=== PATIENT | male | born 1950 | race Caucasian/White ===

== ENCOUNTER 2017-02-24 11:50 | Inpatient (IN) | payer MEDICAID ==
[~2017-02-24] VITALS: Ht 175.3 cm; Wt 99.2 kg
[2017-02-24] MEDS ORDERED: ASPIRIN 81 MG TAB PO STA (12:23)
[2017-02-24] MEDS ORDERED: DICLOFENAC SODIUM 37.5 MG/ML VIAL IV STA (12:23)
[2017-02-24 12:45] LABS: ADD SCAN DIFF NO
[2017-02-24 12:47] LABS: BASOPHIL # 0.1 10^3/ul (0.0-0.1); BASOPHILS % 0.7 % (0.0-2.0); EOSINOPHILS # 0.2 10^3/ul (0.0-0.5); EOSINOPHILS % 2.1 % (0.0-7.0); HEMATOCRIT 42.5 % (42.0-52.0); HEMOGLOBIN 14.6 g/dl (14.0-18.0); LYMPHOCYTES # 1.8 10^3/ul (0.8-2.9); LYMPHOCYTES % 24.7 % (15.0-51.0); MEAN CORPUSCULAR HEMOGLOBIN 31.6 pg (29.0-33.0); MEAN CORPUSCULAR HGB CONC 34.4 g/dl (32.0-37.0); MEAN PLATELET VOLUME 12.8 fl (7.4-10.4); MONOCYTE # 0.6 10^3/ul (0.3-0.9); MONOCYTES % 8.8 % (0.0-11.0); NEUTROPHIL # 4.6 10^3/ul (1.6-7.5); NEUTROPHILS % 63.4 % (39.0-77.0); PLATELET COUNT 188 10^3/UL (140-415); RED BLOOD COUNT 4.62 10^6/ul (4.70-6.10); RED CELL DISTRIBUTION WIDTH 12.1 % (11.5-14.5); WHITE BLOOD COUNT 7.3 10^3/ul (4.8-10.8)
[2017-02-24 13:03] LABS: ALANINE AMINOTRANSFERASE 25 IU/L (13-69); ALBUMIN 3.7 g/dl (3.3-4.9); ALBUMIN/GLOBULIN RATIO 1.15; ALKALINE PHOSPHATASE 72 IU/L (42-121); ANION GAP 9 (8-16); ASPARTATE AMINO TRANSFERASE 21 IU/L (15-46); BILIRUBIN,INDIRECT 2.1 mg/dl (0-1.1); BILIRUBIN,TOTAL 2.1 mg/dl (0.2-1.3); BLOOD UREA NITROGEN 11 mg/dl (7-20); CALCIUM 8.6 mg/dl (8.4-10.2); CARBON DIOXIDE 25 mmol/L (21-31); CHLORIDE 108 mmol/L (97-110); CREATININE 0.78 mg/dl (0.61-1.24); GLUCOSE 99 mg/dl (70-220); POTASSIUM 4.1 mmol/L (3.5-5.1); SODIUM 138 mmol/L (135-144); TOTAL PROTEIN 6.9 g/dl (6.1-8.1)
[2017-02-24 13:09] LABS: B-TYPE NATRIURETIC PEPTIDE 715 PG/ML (0-125)
--- NOTE | 2017-02-24 13:28 | RADRPT ---
PROCEDURE: XR Chest 1 View. CLINICAL INDICATION: Chest pain , shortness of breath TECHNIQUE: AP view of the chest was obtained. COMPARISON: None. FINDINGS: The cardiomediastinal silhouette is within normal limits. Subsegmental atelectasis is noted at the l eft lung base. No consolidations are identified. No pneumothorax is seen. Osseous structures are i ntact. IMPRESSION: Subsegmental atelectasis at the left lung base. RPTAT: AA .Mike Bianchi MD, Date Time Electronically viewed and signed by .Mike Bianchi MD, on 02/24/2017 13:27 .P/
[2017-02-24 13:42] LABS: TROPONIN-I < 0.012 ng/ml (0.00-0.12)
[2017-02-24] MEDS ORDERED: HYDR-906 PO (14:31)
[2017-02-24] MEDS ORDERED: IBUP800T25 PO (14:31)
--- NOTE | 2017-02-24 14:35 | ERD ---
ER Documentation Chief Complaint Date/Time DATE: 02/24/17 TIME: 14:31 Chief Complaint chest pain started today HPI 66-year-old male who is complaining of left-sided chest pain. Patient states the pain is sharp and worse with movement. He does not have any history of trauma or repetitive use injury. Pain is not radiating. He has no shortness of breath and diaphoresis no palpitations. The patient complains with 3 month history of shortness of breath while he is asleep. He says when he sleeps she wakes up gasping for air on multiple occasions throughout the night. He has no orthopnea no dyspnea on exertion. Does have excessive fatigue during the day and can fall asleep easily watching TV. ROS All systems reviewed and are negative except as per history of present illness. Medications Home Meds Active Scripts Hydrocodone/Acetaminophen (Phillips 5-325 Tablet) 1 Each Tablet, 1 TAB PO Q6H Y for PAIN, #7 TAB Prov:ANTOLIN CHRISTIANSENSTADRIANS Gera. DO 02/24/17 Ibuprofen* (Motrin*) 800 Mg Tab, 800 MG PO Q6H Y for PAIN AND OR ELEVATED TEMP, #30 TAB Prov:ADANOSANTOLINSTOLOS A. DO 02/24/17 Allergies Allergies: Coded Allergies: No Known Allergy (Unverified , 02/24/17) PMhx/Soc Medical and Surgical Hx: pt denies Medical Hx, pt denies Surgical Hx Hx Alcohol Use: No Hx Substance Use: No Hx Tobacco Use: No Smoking Status: Unknown if ever smoked FmHx Family History: No coronary disease Physical Exam Vitals Vital Signs Date Time Temp Pulse Resp B/P Pulse Ox O2 Delivery O2 Flow Rate FiO2 02/24/17 13:33 66 18 144/98 98 Room Air 02/24/17 12:07 98.2 70 18 154/90 98 Physical Exam Const: Well-developed, well-nourished Head: Atraumatic, normocephalic Eyes: Normal Conjunctiva, PERRLA, EOMI, normal sclera, no nystagmus ENT: Normal External Ears, Nose and Mouth, moist mucus membranes. Neck: Full range of motion. No meningismus, no lymphadenopathy. Resp: Clear to auscultation bilaterally, no wheezing, rhonchi, rales Cardio: Regular rate and rhythm, no murmurs, S1 S2 present, he has severe tenderness to the left anterior chest wall at the costosternal margin. The pain is sharp and 100% reproducible. It is also reproducible with range of motion of the left upper extremity and twisting of the trunk Abd: Soft, non tender x 4, non distended. Normal bowel sounds, no guarding or rebound, no pulsitile abdominal masses or bruits Skin: No petechiae or rashes, no ecchymosis , no maculopapular rash Back: No midline or flank tenderness Ext: No cyanosis, or edema, FROM x 4, normal inspection, neurovascularly intact x 4 Neur: Awake and alert, STR 5/5 x 4, sensation intact x 4, no focal findings, cerebellum intact Psych: Normal Mood and Affect Result Diagram: 02/24/17 1230 02/24/17 1230 Results 24 hrs Laboratory Tests Test 02/24/17 12:30 White Blood Count 7.310^3/ul Red Blood Count 4.6210^6/ul Hemoglobin 14.6g/dl Hematocrit 42.5% Mean Corpuscular Volume 92.0fl Mean Corpuscular Hemoglobin 31.6pg Mean Corpuscular Hemoglobin Concent 34.4g/dl Red Cell Distribution Width 12.1% Platelet Count 33419^3/UL Mean Platelet Volume 12.8fl Neutrophils % 63.4% Lymphocytes % 24.7% Monocytes % 8.8% Eosinophils % 2.1% Basophils % 0.7% Nucleated Red Blood Cells % 0.0/100WBC Neutrophils # 4.610^3/ul Lymphocytes # 1.810^3/ul Monocytes # 0.610^3/ul Eosinophils # 0.210^3/ul Basophils # 0.110^3/ul Nucleated Red Blood Cells # 0.010^3/ul Sodium Level 138mmol/L Potassium Level 4.1mmol/L Chloride Level 108mmol/L Carbon Dioxide Level 25mmol/L Anion Gap 9 Blood Urea Nitrogen 11mg/dl Creatinine 0.78mg/dl Glucose Level 99mg/dl Calcium Level 8.6mg/dl Total Bilirubin 2.1mg/dl Direct Bilirubin 0.00mg/dl Indirect Bilirubin 2.1mg/dl Aspartate Amino Transf (AST/SGOT) 21IU/L Alanine Aminotransferase (ALT/SGPT) 25IU/L Alkaline Phosphatase 72IU/L Troponin I < 0.012ng/ml B-Type Natriuretic Peptide 715PG/ML Total Protein 6.9g/dl Albumin 3.7g/dl Globulin 3.20g/dl Albumin/Globulin Ratio 1.15 Current Medications Medications (Trade) Dose Ordered Sig/Abdiaziz Route PRN Reason Start Time Stop Time Status Last Admin Dose Admin Aspirin (Aspirin) 162 mg ONCE STAT PO 02/24/17 12:23 02/24/17 12:26 DC 02/24/17 13:15 Diclofenac Sodium (Dyloject) 37.5 mg ONCE STAT IV 02/24/17 12:23 02/24/17 12:26 DC 02/24/17 13:15 Procedures/MDM PROCEDURE: XR Chest 1 View. CLINICAL INDICATION: Chest pain , shortness of breath TECHNIQUE: AP view of the chest was obtained. COMPARISON: None. FINDINGS: The cardiomediastinal silhouette is within normal limits. Subsegmental atelectasis is noted at the left lung base. No consolidations are identified. No pneumothorax is seen. Osseous structures are intact. IMPRESSION: Subsegmental atelectasis at the left lung base. RPTAT: AA .Mike Bianchi MD, MD Date Time Electronically viewed and signed by .Mike Bianchi MD, MD on 02/24/2017 13:27 .P/ CC: OSCAR CHRISTIANSEN DO EKG: Rate/Rhythm: Rate controlled atrial fibrillation QRS, ST, QT: NORMAL FL, QRS, QT] Impression: Atrial fibrillation EK Rate/Rhythm: Rate controlled atrial fibrillation QRS, ST, QT: NORMAL FL, QRS, QT] Impression: Atrial fibrillation The patient's chest pain is clearly musculoskeletal any show signs clinically of sleep apnea needs a sleep study. The patient does have new onset atrial fibrillation but not rapid ventricular response. He will need to be admitted for workup and echocardiogram and hopefully conversion Departure Diagnosis: Primary Impression: Atrial fibrillation Atrial fibrillation type: unspecified Qualified Code: I48.91 - Atrial fibrillation, unspecified type Additional Impressions: Costochondritis Sleep apnea Sleep apnea type: unspecified type Qualified Code: G47.30 - Sleep apnea, unspecified type Condition: Stable Patient Instructions: Surgical Treatment for Snoring and Sleep Apnea OSCAR CHRISTIANSEN DO Feb 24, 2017 14:35
[2017-02-24] MEDS ORDERED: ONDANSETRON 4 MG INJ IV PRN ×2 (16:00→17:30)
[2017-02-24] MEDS ORDERED: ACETAMINOPHEN 325 MG TAB PO PRN ×2 (16:00→17:30)
[2017-02-24] MEDS ORDERED: NITROGLYCERIN (SL) 0.4 MG TAB SL PRN (17:30)
[2017-02-24] MEDS ORDERED: DOCUSATE SODIUM 100 MG CAP PO PRN (17:30)
[2017-02-24] MEDS ORDERED: HYDROCODONE/APAP (5/325) TAB PO PRN (17:30)
[2017-02-24] MEDS ORDERED: NACL 0.9% 3 ML SYG IV SCH (17:30)
[2017-02-24] MEDS ORDERED: BISACODYL (EC) 5 MG TAB PO PRN (17:30)
[2017-02-24] MEDS ORDERED: LORAZEPAM 0.5 MG TAB PO PRN (17:30)
--- NOTE | 2017-02-24 18:20 | RADRPT ---
PROCEDURE: Right upper quadrant ultrasound CLINICAL INDICATION: Abdominal pain TECHNIQUE: Multiple real-time images were acquired of the patient's abdomen and right retroperiton eum utilizing a high resolution transducer. COMPARISON: None FINDINGS: The liver is normal in echogenicity and measures 19.0 cm. No focal hepatic masses are seen. The ga llbladder is physiologically distended. There is no evidence of gallstones, gallbladder wall thicke frank, or pericholecystic fluid. The intra and extrahepatic bile ducts are normal in caliber. The c ommon bile duct measures 3.5 mm. Pancreas is suboptimally seen Survey views of the right kidney demonstrate no evidence of hydronephrosis or renal calculi. The ri ght kidney measures 10.3 cm. IMPRESSION: 1. No evidence of cholelithiasis or acute cholecystitis. 2. Borderline hepatomegaly. 3. Pancreas suboptimally seen RPTAT: HH .Chilango Okeefe MD, Date Time Electronically viewed and signed by .Chilango Okeefe MD, MD on 02/24/2017 18:20 .W/
[2017-02-24 18:30] LABS: CREATINE KINASE 70 IU/L (23-200)
[2017-02-24 18:42] LABS: CK-MB 1.37 ng/ml (0.0-2.4)
[2017-02-24 18:43] LABS: TROPONIN-I < 0.012 ng/ml (0.00-0.12)
--- NOTE | 2017-02-24 18:43 | HP ---
DATE OF ADMISSION: 02/24/2017 FINE PATCHER: Dr. Ronn Redding. CHIEF COMPLAINT: Shortness of breath. HISTORY OF PRESENT ILLNESS: This is a 66-year-old gentleman with past medical history of arthritis who has been complaining of having shortness of breath and paroxysmal nocturnal dyspnea for the past 2 to 3 months with worsening of his shortness of breath with activity. Patient presents today to [facility] where a chest x-ray was obtained which shows subsegmental atelectasis at the left lung base, no evidence of CHF. His troponin was found to be negative. His EKG demonstrat ed rate controlled atrial fibrillation, normal DE, QRS, patient was treated with aspirin and diclofe nac over the course in the emergency room. At this time, the patient is lying in bed comfortably wi thout any distress. He is awake, alert, oriented. He is able to answer my questions properly. PAST MEDICAL AND SURGICAL HISTORY: 1. Arthritis. 2. Moderate obesity. MEDICATIONS: 1. [place]. 2. Ibuprofen. ALLERGIES: NO KNOWN DRUG ALLERGIES. FAMILY HISTORY: Noncontributory. SOCIAL HISTORY: He used to smoke but he does not smoke, no alcohol, no illicit drugs. REVIEW OF SYSTEMS: Denies any fever, chills, weight gain, weight loss, anorexia. No chest pain, pa lpitations, edema, orthopnea. No change in visual acuity, diplopia, photophobia. No abdominal pain , nausea, vomiting, diarrhea. No headache, dizziness, lightheadedness. No neck pain, no restricted range of motion. No recent travel history. No sick contact. PHYSICAL EXAMINATION VITAL SIGNS: Temperature 98.2, pulse 71, respirations 17, blood pressure 142/98, oxygen saturation 100% on room air. GENERAL APPEARANCE: Patient is lying in bed comfortably without any acute distress. He is awake, a lert, oriented. He is able to answer my questions properly. EYES AND ENT: Conjunctivae and lids are normal. Pupils are normal. Extraocular normal. Hearing g rossly normal. NECK: Supple. Trachea is midline. No lymphadenopathy. RESPIRATORY: Effort is normal. Clear to auscultation bilaterally. CARDIOVASCULAR: Normal S1, S2. Regular rhythm and rate. No murmur, no bruits, no edema. Peripher al pulses and radial pulses palpable. Cap refill is normal. CHEST: Normal expansion of thorax during inspiration. GASTROINTESTINAL: Abdomen is soft, nontender, not distended. Bowel sounds present. No guarding, n o rebound. GENITOURINARY: Deferred. MUSCULOSKELETAL: Upper and lower extremities within normal limits. Full range of motion, strength 5/5 in both upper and lower extremities. NEUROLOGIC: Cranial nerves II through XII are grossly intact. PSYCHIATRIC: Normal judgment and insight. Alert and oriented x3. Mood and affect is normal. LABORATORY WORK AND IMAGING: WBC 7.3, hemoglobin 14.3, hematocrit 42.5, platelets 188. Sodium 138, potassium 4.1, chloride 108, bicarbonate 25, BUN 11, creatinine 0.78, glucose 99, total bilirubin 2 .1, indirect bilirubin 2.1, AST 21, ALT 25. Troponin negative. ASSESSMENT AND PLAN: 1. Atypical chest pain. First troponin is negative. EKG showed atrial fibrillation. Will obtain a 2D echocardiogram. Cardiology has been consulted. Patient has been started on aspirin and will f ollow up lipid panel in a.m. 2. New onset atrial fibrillation, rate controlled. Patient has been placed on metoprolol and aspir in. 3. Moderate obesity. Diet and exercise has been recommended. 4. Shortness of breath is likely secondary to new onset atrial fibrillation. Follow up cardiology recommendation. 5. Deep venous thrombosis prophylaxis on Lovenox. We will continue to monitor patient closely. Bruce hinton recommendations, management and treatment as per clinical course. Dictated By: CARLOTA WYLIE/NTS Conf#: [id number] DID#: [id number]
[2017-02-24] MEDS ORDERED: NICARDipine HCL 30 MG CAPSULE PO ONE (20:30)
[2017-02-24 20:40] VITALS: Ht 175.3 cm; Wt 99.2 kg
[2017-02-24 20:52] VITALS: PULSE 67
[2017-02-24 21:00] VITALS: BP 152/87; PULSE 59; RESP 18
[2017-02-24 21:17] VITALS: BP 129/71; PULSE 71
[2017-02-24] MEDS: METOPROLOL 25 MG TAB PO SCH (21:49)
[2017-02-24 23:32] LABS: CREATINE KINASE 69 IU/L (23-200)
[2017-02-24 23:45] LABS: CK-MB 1.27 ng/ml (0.0-2.4); TROPONIN-I < 0.012 ng/ml (0.00-0.12)
[2017-02-25] VITALS (12 sets, daily range): BP systolic 117–153; BP diastolic 67–85; PULSE 54–71; RESP 17–20
[2017-02-25 07:50] LABS: ADD SCAN DIFF NO
[2017-02-25 07:56] LABS: BASOPHIL # 0.1 10^3/ul (0.0-0.1); BASOPHILS % 0.7 % (0.0-2.0); EOSINOPHILS # 0.2 10^3/ul (0.0-0.5); EOSINOPHILS % 2.9 % (0.0-7.0); HEMATOCRIT 43.2 % (42.0-52.0); HEMOGLOBIN 14.6 g/dl (14.0-18.0); LYMPHOCYTES # 1.7 10^3/ul (0.8-2.9); LYMPHOCYTES % 24.3 % (15.0-51.0); MEAN CORPUSCULAR HEMOGLOBIN 31.7 pg (29.0-33.0); MEAN CORPUSCULAR HGB CONC 33.8 g/dl (32.0-37.0); MEAN CORPUSCULAR VOLUME 93.9 fl (82.0-101.0); MEAN PLATELET VOLUME 12.4 fl (7.4-10.4); MONOCYTE # 0.6 10^3/ul (0.3-0.9); MONOCYTES % 8.1 % (0.0-11.0); NEUTROPHIL # 4.6 10^3/ul (1.6-7.5); NEUTROPHILS % 63.7 % (39.0-77.0); PLATELET COUNT 194 10^3/UL (140-415); RED CELL DISTRIBUTION WIDTH 12.2 % (11.5-14.5); WHITE BLOOD COUNT 7.2 10^3/ul (4.8-10.8)
[2017-02-25 08:26] LABS: ALBUMIN 3.8 g/dl (3.3-4.9); ALBUMIN/GLOBULIN RATIO 1.15; BILIRUBIN,INDIRECT 2.2 mg/dl (0-1.1); BILIRUBIN,TOTAL 2.2 mg/dl (0.2-1.3); CHOL/HDL RATIO 7.9 RATIO; CREATININE 0.89 mg/dl (0.61-1.24); MAGNESIUM 2.3 mg/dl (1.7-2.5); POTASSIUM 4.5 mmol/L (3.5-5.1); TOTAL PROTEIN 7.1 g/dl (6.1-8.1)
[2017-02-25 08:54] LABS: THYROID STIMULATING HORMONE 3.69 MIU/L (0.465-4.680)
[2017-02-25] MEDS ORDERED: ENOXAPARIN 40 MG/0.4 ML SYG SC SCH ×2 (09:00)
[2017-02-25] MEDS: METOPROLOL 25 MG TAB PO SCH ×2 (09:27→21:00)
[2017-02-25] MEDS: FAMOTIDINE 20 MG TAB PO SCH (09:27)
[2017-02-25] MEDS: ASPIRIN 81 MG TAB PO SCH (09:27)
--- NOTE | 2017-02-25 15:41 | PN ---
Date/Time of Note Date/Time of Note DATE: 02/25/17 TIME: 15:38 Assessment/Plan VTE Prophylaxis VTE Prophylaxis Intervention: LMWH, other Lines/Catheters IV [facility] [place] Assessment/Plan Chief Complaint/Hosp Course ASSESSMENT AND PLAN: 1. Atypical chest pain. First troponin is negative. EKG showed atrial fibrillation. Follow-up results of 2D echocardiogram. Cardiology has been consulted. Continue aspirin 2. New onset atrial fibrillation, rate controlled on metoprolol, patient has been started on Eliquis. We will follow-up cardiology recommendations 3. Moderate obesity. Diet and exercise has been recommended. 4. Shortness of breath is likely secondary to new onset atrial fibrillation. Follow up cardiology recommendation. 5. Deep venous thrombosis prophylaxis status post Lovenox, has been transitioned to Eliquis. We will continue to monitor patient closely. Further recommendations, management and treatment as per clinical course. Problems: Subjective 24 Hr Interval Summary Free Text/Dictation Patient denies of any chest pain or shortness of breath He denies of any palpitation Tolerating oral intake Exam/Review of Systems Vital Signs Vitals Vital Signs Date Time Temp Pulse Resp B/P Pulse Ox O2 Delivery O2 Flow Rate FiO2 02/25/17 12:23 58 02/25/17 11:54 98.0 19 153/73 98 02/25/17 07:56 Nasal Cannula 2.0 Intake and Output 02/24/17 02/24/17 02/25/17 14:59 22:59 06:59 Intake Total 400 ml Balance 400 ml Exam General: The patient is well-developed, Not in acute distress. HEENT: Atraumatic, normocephalic. The pupils are equal and round . Neck: Supple with full range of motion. Chest: Normal expansion of the thorax during inspiration Lungs: Clear to auscultation bilaterally Heart: Normal S1-S2, rate control irregular rhythm, A. fib Abdomen: Soft , nontender, nondistended , bowel sounds are present. Extremities: Normal to inspection, no edema no cyanosis Neurologic: Normal mental status,The patient is awake, alert and oriented . Results Result Diagram: 02/25/17 0730 02/25/17 0730 Results 24 hrs Laboratory Tests Test 02/24/17 18:10 02/24/17 23:00 02/25/17 07:30 Creatine Kinase 70 69 Creatine Kinase Index 2.0 1.8 Creatinine Kinase MB (Mass) 1.37 1.27 Troponin I < 0.012 < 0.012 White Blood Count 7.2 Red Blood Count 4.60 L Hemoglobin 14.6 Hematocrit 43.2 Mean Corpuscular Volume 93.9 Mean Corpuscular Hemoglobin 31.7 Mean Corpuscular Hemoglobin Concent 33.8 Red Cell Distribution Width 12.2 Platelet Count 194 Mean Platelet Volume 12.4 H Neutrophils % 63.7 Lymphocytes % 24.3 Monocytes % 8.1 Eosinophils % 2.9 Basophils % 0.7 Nucleated Red Blood Cells % 0.0 Neutrophils # 4.6 Lymphocytes # 1.7 Monocytes # 0.6 Eosinophils # 0.2 Basophils # 0.1 Nucleated Red Blood Cells # 0.0 Sodium Level 140 Potassium Level 4.5 Chloride Level 109 Carbon Dioxide Level 25 Anion Gap 11 Blood Urea Nitrogen 15 Creatinine 0.89 Glucose Level 100 Calcium Level 9.0 Magnesium Level 2.3 Total Bilirubin 2.2 H Direct Bilirubin 0.00 Indirect Bilirubin 2.2 H Aspartate Amino Transf (AST/SGOT) 21 Alanine Aminotransferase (ALT/SGPT) 27 Alkaline Phosphatase 74 Total Protein 7.1 Albumin 3.8 Globulin 3.30 H Albumin/Globulin Ratio 1.15 Triglycerides Level 236 H Cholesterol Level 182 LDL Cholesterol, Calculated 112 HDL Cholesterol 23 L Cholesterol/HDL Ratio 7.9 Thyroid Stimulating Hormone (TSH) 3.690 Medications Medications Current Medications Lorazepam (Ativan) 0.5 mg Q8H PRN PO ANXIETY; Start 02/24/17 at 17:30 Ondansetron HCl (Zofran Inj) 4 mg Q6H PRN IV NAUSEA AND/OR VOMITING; Start at 17:30 Aspirin (Aspirin) 81 mg DAILY PO Last administered on 02/25/17 09:27; Admin Dose 81 MG; Start 02/25/17 at 09:00 Nitroglycerin (Nitroglycerin (Sl Tab) 0.4 Mg) 1 tab Q5M PRN SL CHEST PAIN; Start 02/24/17 at 17:30 Acetaminophen (Tylenol Tab) 650 mg Q6H PRN PO PAIN LEVEL 1-3 OR FEVER; Start at 17:30 Acetaminophen/ Hydrocodone Bitart ([place] (5/325)) 1 tab Q6H PRN PO PAIN LEVEL 4 -6 Last administered on 02/24/17 21:48; Admin Dose 1 TAB; Start 02/24/17 at 17: 30 Docusate Sodium (Colace) 100 mg Q12H PRN PO CONSTIPATION; Start 02/24/17 at 17: 30 Bisacodyl (Dulcolax) 5 mg DAILY PRN PO CONSTIPATION; Start 02/24/17 at 17:30 Famotidine (Pepcid) 20 mg DAILY PO Last administered on 02/25/17 09:27; Admin Dose 20 MG; Start 02/25/17 at 09:00 Enoxaparin Sodium (Lovenox) 40 mg DAILY SC Last administered on 02/25/17 09:30 ; Admin Dose 40 MG; Start 02/25/17 at 09:00 Metoprolol Tartrate (Lopressor) 12.5 mg BID PO Last administered on 02/25/17 09:27; Admin Dose 12.5 MG; Start 02/24/17 at 21:00 CARLOTA ASCENCIO MD Feb 25, 2017 15:41
--- NOTE | 2017-02-25 21:09 | CONS ---
DATE OF ADMISSION: 02/25/2017 DATE OF CONSULTATION: 02/25/2017 REASON FOR CONSULTATION: Atrial fibrillation. REQUESTING PHYSICIAN: Dr. Ascencio from the hospitalist service. HISTORY OF PRESENT ILLNESS: Mr. Mota is a 66-year-old male with a history of degenerative joint disease who presented with complaints of shortness of breath with activity and questionable PND. Upon arrival in the emergency department, temperature of 98.2, blood pressure 154/90, pulse 70, respiratory rate 18, saturating 98%. The patient's labs revealed a white blood cell count of 7.3, hemoglobin 14.6, platelet count of 188. Sodium 138, potassium 4.1, creatinine 0.78. Troponin negative. LDL 112, HDL 23. TSH of 3.69. The patient underwent a KUB revealing no evidence of cholelithiasis or acute cholecystitis, borderline hepatomegaly. Additionally, the patient underwent a chest x-ray showing subsegmental atelectasis at the left lung base. The patient's electrocardiogram revealed atrial fibrillation, rate of 80, normal axis, normal intervals with nonspecific ST and T wave abnormalities diffusely. The patient was subsequently admitted to the floor and, since admit to the floor, has continued to remain in AFib, but he additionally had an episode of bradycardia to the 30s with a pause of approximately 2 seconds. The patient, at this time, denies chest pain, but states he has ongoing shortness of breath. PAST MEDICAL HISTORY: As above in HPI. MEDICATIONS CURRENTLY IN HOSPITAL: 1. Eliquis 5 mg p.o. b.i.d. 2. Aspirin 81 mg daily. 3. Pepcid 20 mg daily. 4. Metoprolol 12.5 mg p.o. b.i.d. 5. PRN Colace. 6. PRN Tylenol. 7. PRN sublingual nitroglycerin. ALLERGIES: NO KNOWN DRUG ALLERGIES. SOCIAL HISTORY: No tobacco, ETOH, or illicit drug use. FAMILY HISTORY: No history of sudden cardiac or early CAD. REVIEW OF SYSTEMS: As above in HPI. CONSTITUTIONAL: No fevers, chills. PULMONARY: Shortness of breath. CARDIOVASCULAR: Atrial fibrillation. GASTROINTESTINAL: No vomiting. GENITOURINARY: No hematuria. MUSCULOSKELETAL: Degenerative joint disease. PSYCHIATRIC: The patient denies depression. NEUROLOGIC: No documented history of CVA. PHYSICAL EXAMINATION: VITAL SIGNS: Temperature 98.2, blood pressure 127/81, pulse 61, respiratory rate 19, satting 98%. GENERAL: The patient is alert, awake, no acute distress. NECK: JVP approximately 9 cm water. CHEST: Fair movement throughout with mildly decreased breath sounds at bases bilaterally. HEART: Irregularly irregular, I/ systolic murmur. ABDOMEN: Positive bowel sounds, soft. EXTREMITIES: No edema, 1+ pulses bilaterally, posterior tibial. LABORATORY DATA: Most recently from today, sodium 140, potassium 4.5, creatinine 0.89, BUN 15. Troponin negative x3. LDL 112, HDL 23. White cell count 7.2, hemoglobin 14.6, platelet count of 194. IMAGING STUDIES: As above in HPI. No further imaging studies for my review at this time. ELECTROCARDIOGRAM: As above in HPI. No further electrocardiograms for my review at this time. IMPRESSION: 1. Atrial fibrillation. 2. Pause of 2 seconds. 3. Shortness of breath, assess for congestive heart failure. 4. Hypertension. 5. Dyslipidemia with low HDL. RECOMMENDATIONS: 1. At this time, would maintain patient on telemetry monitoring to follow rhythm and rate closely. 2. Continue the patient's low dose beta faustino at this time and follow for recurrent pauses. 3. Continue the patient's Eliquis given the patient's age and comorbid risk fractures, placing him at increased risk for thromboembolic complications of atrial fibrillation and benefit from systemic anticoagulation if possible or elevated CHADS score. 4. We will follow the patient's 2D echo done for assessment of ejection fraction, wall motion, and any major valve abnormalities. 5. The patient is status post 3 negative troponins, although all drawn approximately 4 hours apart. Additionally, the patient is status post TSH within normal limits. 6. At this time, will additionally give patient gentle Lasix diuresis and follow respiratory response. Thank you for allowing me to take part in the care of this patient. I will continue to follow along very closely with you. Further recommendations will be made as the patient progresses through his inpatient hospital clinical course. Dictated By: PATY BASS/LENIN Conf#: [id number] DID#: [id number] CC: CARLOTA ASCENCIO MD;*EndCC* MTDD
--- NOTE | 2017-02-25 21:28 | RADRPT ---
Echocardiogram Report Patient Name: GINA WHITE Gender: Male Date: 1950 Study Date: 25-Feb-2017 Logistics Planner: Zeus Glez [facility] Location: [id number] Ref. Physician: CARLOTA ASCENCIO Quality: Good Procedures: Transthoracic echocardiogram with complete 2D, M-Mode, and doppler examination. Indications: Congestive Heart Failure. 2D/M Mode Doppler Measurement Value Normal Ranges Measurement Value Normal Ranges LVIDd 2D 4.7 3.5 - 5.6 cm AV Peak Cory 1.2 m/sec LVIDs 2D 2.8 2.1 - 4.1 cm AV Peak PG 6.0 mmHg FS 2D 39.7 % AI Peak PG 53.0 mmHg LVPWd 2D 1.0 0.6 - 1.1 cm AI Peak Cory 3.6 m/sec IVSd 2D 1.0 0.6 - 1.1 cm AI PHT 685.0 msec IVS/LVPW 2D 1.0 LVOT Peak Cory 0.7 m/sec AoR Diam 2D 3.0 2.0 - 3.7 cm LVOT Peak PG 2.0 mmHg LA/Ao 2D 1 0 - 1 MV E Peak Cory 0.7 m/sec EDV 2D 103.0 cm3 MV Decel Time 85 msec ESV 2D 22.7 cm3 TR Peak Cory 2.5 m/sec LA Dimen 2D 4.3 2.3 - 4.0 cm TR Peak PG 25.0 mmHg RVSP 33.0 mmHg Findings Left Ventricle: Normal left ventricular systolic function. Normal left ventricular cavity size. Normal left ventricular wall thickness. Ejection fraction is visually estimated at 55 %. Right Ventricle: Normal right ventricular size. Normal right ventricular systolic function. Left Atrium: There is mild enlargement of left atrium. Right Atrium: The right atrium is normal in size. Mitral Valve: Mitral valve leaflets appear mildly thickened. Mild mitral annular calcification. Mild mitral valve regurgitation. Aortic Valve: No hemodynamically significant aortic stenosis by doppler. Aortic cusps appear mildly calcified. Mild aortic valve regurgitation. Tricuspid Valve: Normal appearance of the tricuspid valve. Estimated peak PA systolic pressure 33 mmHg. There is mild tricuspid regurgitation. Pulmonic Valve: Normal pulmonic valve appearance. Pericardium: Normal pericardium with no significant pericardial effusion. Aorta: Normal aortic root. IVC: Dilated IVC with respiratory collapse consistent with elevated right atrial pressure. Conclusions 1.Normal left ventricular systolic function. Normal left ventricular cavity size. Normal left ventricular wall thickness. Ejection fraction is visually estimated at 55 %. 2.There is mild enlargement of left atrium. 3.Mild mitral valve regurgitation. 4.Mild aortic valve regurgitation. 5.Normal appearance of the tricuspid valve. Estimated peak PA systolic pressure 33 mmHg. There is mild tricuspid regurgitation. Electronically Signed By: Ronn Redding 25-Feb-2017 21:27:20 -0700 Patient Name: GINA WHITE Study Date: 25-Feb-2017 [id number]
[2017-02-25] MEDS: APIXABAN 5 MG TABLET PO SCH (21:41)
[2017-02-26] VITALS (11 sets, daily range): BP systolic 131–143; BP diastolic 69–94; PULSE 60–84; RESP 19–20
[2017-02-26 07:52] LABS: ADD SCAN DIFF NO
[2017-02-26 08:14] LABS: BASOPHILS % 0.5 % (0.0-2.0); EOSINOPHILS # 0.2 10^3/ul (0.0-0.5); HEMATOCRIT 44.5 % (42.0-52.0); HEMOGLOBIN 15.1 g/dl (14.0-18.0); LYMPHOCYTES # 1.9 10^3/ul (0.8-2.9); LYMPHOCYTES % 23.5 % (15.0-51.0); MEAN CORPUSCULAR HEMOGLOBIN 31.6 pg (29.0-33.0); MEAN CORPUSCULAR HGB CONC 33.9 g/dl (32.0-37.0); MEAN CORPUSCULAR VOLUME 93.1 fl (82.0-101.0); MEAN PLATELET VOLUME 12.5 fl (7.4-10.4); MONOCYTE # 0.6 10^3/ul (0.3-0.9); MONOCYTES % 7.2 % (0.0-11.0); NEUTROPHIL # 5.2 10^3/ul (1.6-7.5); NEUTROPHILS % 65.4 % (39.0-77.0); PLATELET COUNT 192 10^3/UL (140-415); RED BLOOD COUNT 4.78 10^6/ul (4.70-6.10); RED CELL DISTRIBUTION WIDTH 12.2 % (11.5-14.5); WHITE BLOOD COUNT 7.9 10^3/ul (4.8-10.8)
[2017-02-26 08:22] LABS: CALCIUM 8.9 mg/dl (8.4-10.2); CREATININE 0.89 mg/dl (0.61-1.24); MAGNESIUM 2.1 mg/dl (1.7-2.5); POTASSIUM 4.3 mmol/L (3.5-5.1)
[2017-02-26] MEDS: APIXABAN 5 MG TABLET PO SCH ×2 (08:35→22:23)
[2017-02-26] MEDS: ASPIRIN 81 MG TAB PO SCH (08:35)
[2017-02-26] MEDS: FAMOTIDINE 20 MG TAB PO SCH (08:35)
[2017-02-26] MEDS: METOPROLOL 25 MG TAB PO SCH ×2 (08:37→22:23)
--- NOTE | 2017-02-26 14:53 | PDOCDIS ---
Discharge Instructions CONDITION Patient Condition: Good HOME CARE INSTRUCTIONS: Special Diet: LOW FAT/CHOL ACTIVITY: Activity Restrictions: No Restrictions FOLLOW UP/APPOINTMENTS Appointments Follow-up with audio/video technician as outpatient CARLOTA ASCENCIO MD Feb 26, 2017 14:53
[2017-02-26] MEDS ORDERED: ASPI81TA3 PO (14:55)
[2017-02-26] MEDS ORDERED: APIX5TAB PO (14:55)
[2017-02-26] MEDS ORDERED: ATOR10TA65 PO (14:55)
[2017-02-26] MEDS ORDERED: METO-448 PO (14:55)
--- NOTE | 2017-02-26 15:40 | DS ---
DATE OF ADMISSION: 02/25/2017 DATE OF DISCHARGE: 02/26/2017 CONSULTANTS: Dr. Ronn Redding PROCEDURE: 2-D echocardiogram which demonstrated normal left ventricular systolic function, normal left ventricular cavity size, normal left ventricle wall thickness, ejection fraction estimated at 5 5%. There is mild enlargement of the left atrium, mild mitral valve regurg, mild aortic valve regur g, normal appearance of the tricuspid valve. Estimated peak PA systolic pressure is 33 mmHg. There is mild tricuspid regurgitation. DISCHARGE DIAGNOSES: 1. Atypical chest pain. Acute coronary syndrome was ruled out with negative troponin. 2D echocard iogram showed a normal ejection fraction. 2. New onset atrial fibrillation. Rate controlled on metoprolol. The patient has been placed on E liquis. 3. Moderate obesity. Diet and exercise has been recommended. 4. Shortness of breath, likely secondary to atrial fibrillation. Resolved. 5. Dyslipidemia. He has been started on Lipitor. MEDICATIONS: 1. Eliquis 5 mg. 2. Metoprolol 12.5 mg. 3. Aspirin 81 mg. 4. Lipitor 5 mg 5. Omeprazole 20 mg. 6. [place]. ALLERGIES: NO KNOWN DRUG ALLERGIES. LABS: Sodium 137, potassium 4.3, chloride 108, bicarbonate 24, BUN 17, creatinine 0.89, glucose 100 , calcium 8.9, magnesium 2.1. Troponins negative x3. BNP 715, triglycerides 236, total cholesterol 182, LDL 112, HDL 23. TSH 3.69. WBC 7.9, hemoglobin 15.1, hematocrit 44.5, platelets 192. HOSPITAL COURSE: This is a very pleasant 66-year-old gentleman with a past medical history of arthr itis and hypertension, who presented to [facility] having shortness of breath, par oxysmal nocturnal dyspnea x2 to 3 months, worsening of his shortness of breath with activity. The p atmariluz presented today to [facility]. Chest x-rays obtained showed subsegmental a telectasis at the left lung base. No evidence of CHF. Troponin was found to be negative. EKG demo nstrated rate controlled atrial fibrillation, normal NM, QRS. The patient was started on aspirin. _ ____ with cardiology was consulted. Patient was started on metoprolol and Lovenox, which then was t ransitioned to [facility]. A 2D echocardiogram was obtained which showed an ejection fraction of 55%, with no diastolic dysfunction. The patient was seen and evaluated by cardiology. Acute coronary sy ndrome was ruled out by negative troponins x3. In regards to his dyslipidemia the patient at this t js has been started on a low dose of statin. He denies of having any chest pain, shortness of neema th, nausea, vomiting, diarrhea, or any other discomfort. At this time the patient is medically stab le to be discharged home, with a close followup with his primary care physician and special agent group insurance as an outpatient. CONDITION AT TIME OF DISCHARGE: Stable. Dictated By: CARLOTA WYLIE/LENIN Conf#: [id number] DID#: [id number]
--- NOTE | 2017-02-26 20:29 | CONS ---
Date/Time of Note Date/Time of Note DATE: 02/26/17 TIME: 20:24 Assessment/Plan Assessment/Plan Chief Complaint/Hosp Course IMPRESSION: 1. Atrial fibrillation-rate controlled 2. Pause of 2 seconds.-no recurrence on current BB dose 3. Shortness of breath, assess for congestive heart failure. 4. Hypertension. 5. Dyslipidemia with low HDL Recc: -Tele -serial ecg -Continue current BB -Continue asa/eliquis Problems: Consultation Date/Type/Reason Admit Date/Time Feb 25, 2017 at 14:05 Initial Consult Date 02/25/2017 Type of Consultation: Cardiology Reason for Consultation AF Referring Provider: CARLOTA ASCENCIO MD Exam/Review of Systems Vital Signs Vitals Vital Signs Date Time Temp Pulse Resp B/P Pulse Ox O2 Delivery O2 Flow Rate FiO2 02/26/17 20:15 97.9 65 20 138/84 98 02/26/17 06:20 Nasal Cannula 02/25/17 21:42 2.0 Intake and Output 02/25/17 02/25/17 02/26/17 15:00 23:00 07:00 Intake Total 700 ml 400 ml Balance 700 ml 400 ml Exam Review of Systems: CONSTITUTIONAL: No fevers, chills. PULMONARY: No sob CARDIOVASCULAR: No chest pain/palpitations GASTROINTESTINAL: No nausea/vomiting. GENITOURINARY: No hematuria/dysuria. MUSCULOSKELETAL: No myagias/arthalgias. PSYCHIATRIC: The patient denies depression. NEUROLOGIC: No weakness Constitutional: alert Psych: no complaints Head: normocephalic ENMT: mucosa pink and moist Neck: jvd, supple Respiratory: clear to auscultation Cardiovascular: irregular rhythm Gastrointestinal: non-tender, soft Musculoskeletal: muscle tone (normal) Extremities: edema (none) Neurological: other (No focal deficits) Results Result Diagram: 02/26/17 0715 02/26/17 0715 Results 24 hrs Laboratory Tests Test 02/26/17 07:15 White Blood Count 7.9 Red Blood Count 4.78 Hemoglobin 15.1 Hematocrit 44.5 Mean Corpuscular Volume 93.1 Mean Corpuscular Hemoglobin 31.6 Mean Corpuscular Hemoglobin Concent 33.9 Red Cell Distribution Width 12.2 Platelet Count 192 Mean Platelet Volume 12.5 H Neutrophils % 65.4 Lymphocytes % 23.5 Monocytes % 7.2 Eosinophils % 3.0 Basophils % 0.5 Nucleated Red Blood Cells % 0.0 Neutrophils # 5.2 Lymphocytes # 1.9 Monocytes # 0.6 Eosinophils # 0.2 Basophils # 0.0 Nucleated Red Blood Cells # 0.0 Sodium Level 137 Potassium Level 4.3 Chloride Level 108 Carbon Dioxide Level 24 Anion Gap 9 Blood Urea Nitrogen 17 Creatinine 0.89 Glucose Level 100 Calcium Level 8.9 Magnesium Level 2.1 Medications Medications Current Medications Lorazepam (Ativan) 0.5 mg Q8H PRN PO ANXIETY; Start 02/24/17 at 17:30 Ondansetron HCl (Zofran Inj) 4 mg Q6H PRN IV NAUSEA AND/OR VOMITING; Start at 17:30 Aspirin (Aspirin) 81 mg DAILY PO Last administered on 02/26/17 08:35; Admin Dose 81 MG; Start 02/25/17 at 09:00 Nitroglycerin (Nitroglycerin (Sl Tab) 0.4 Mg) 1 tab Q5M PRN SL CHEST PAIN; Start 02/24/17 at 17:30 Acetaminophen (Tylenol Tab) 650 mg Q6H PRN PO PAIN LEVEL 1-3 OR FEVER; Start at 17:30 Acetaminophen/ Hydrocodone Bitart ([place] (5/325)) 1 tab Q6H PRN PO PAIN LEVEL 4 -6 Last administered on 02/24/17 21:48; Admin Dose 1 TAB; Start 02/24/17 at 17: 30 Docusate Sodium (Colace) 100 mg Q12H PRN PO CONSTIPATION; Start 02/24/17 at 17: 30 Bisacodyl (Dulcolax) 5 mg DAILY PRN PO CONSTIPATION; Start 02/24/17 at 17:30 Famotidine (Pepcid) 20 mg DAILY PO Last administered on 02/26/17 08:35; Admin Dose 20 MG; Start 02/25/17 at 09:00 Metoprolol Tartrate (Lopressor) 12.5 mg BID PO Last administered on 02/26/17 08:37; Admin Dose 12.5 MG; Start 02/24/17 at 21:00 Apixaban (Eliquis) 5 mg BID PO Last administered on 02/26/17 08:35; Admin Dose 5 MG; Start 02/25/17 at 21:00 PATY THACKER Feb 26, 2017 20:29
== END 2017-02-27 | disposition home or self-care (01) | DRG 313 ==
LOC: E/R 11:50 → MS4 15:48 → OBSVTOIN 02-25 14:05
PROVIDERS: ADMIT Family Medicine; ATTEND Family Medicine
DX: R07.89 Other chest pain (principal); J98.11 Atelectasis; I48.91 Unspecified atrial fibrillation; M94.0 Chondrocostal junction syndrome [Tietze]; G47.30 Sleep apnea, unspecified; E66.8 Other obesity; E78.5 Hyperlipidemia, unspecified; R06.09 Other forms of dyspnea; Z68.32 Body mass index [BMI] 32.0-32.9, adult
CPT/HCPCS: 36415; 71010; 76705; 80048; 80053; 80061; 82550; 82553; 83735; 83880; 84443; 84484; 85025; 93005; 93306; 96374; 99217; G0378; J1650